=== PATIENT | male | born 1940 | race Caucasian/White ===

== ENCOUNTER 2018-05-03 11:47 | Day surgery (SDC) | payer OTHER ==
[~2018-05-03 11:47] MED LIST: TORADOL10 MG PO; WELCHOL625 MG PO; ZOFRAN4 MG PO
[2018-05-03] MEDS ORDERED: POTASSIUM CHLO10 ME4 PO (12:09)
[2018-05-03] MEDS ORDERED: HYDROCHLOROTHIA25 MG PO (12:09)
[2018-05-03] MEDS ORDERED: LISINOPRIL10 MG PO (12:10)
[2018-05-03] MEDS ORDERED: LIPITOR20 MG PO (12:11)
[2018-05-03] MEDS ORDERED: FINASTERIDE5 MG PO (12:11)
[2018-05-03] MEDS ORDERED: ASPIRIN81 M2 PO (12:12)
[2018-05-03] MEDS ORDERED: CENTRUM SILVER1 EAC1 PO (12:12)
[2018-05-03 12:39] LABS: HEMATOCRIT 46.7 % (38.0-50.0); HEMOGLOBIN 16.1 G/DL (12.5-16.6); MCH 31.9 PG (29.0-34.0); MCHC 34.5 G/DL (30.0-36.0); MCV 92.5 FL (86-99); PLATELET COUNT 208 K/uL (156-360); RBC DIS.WIDTH-CV 12.7 % (11.8-14.6); RBC DIS.WIDTH-SD 43.3 % (39-53); RED BLOOD COUNT 5.05 M/uL (4.00-5.50); WHITE BLOOD COUNT 7.7 K/uL (4.1-10.2)
[2018-05-03 13:19] LABS: CHLORIDE 103 MEQ/L (99-109); CREATININE 0.6 MG/DL (0.6-1.3); GFR ESTIMATE (CALCULATED) > 59 mL/min/ (58.99-99999); GLUCOSE 93 mg/dL (70-99); POTASSIUM 5.1 MEQ/L (3.7-5.4); SODIUM 138 MEQ/L (136-147); UREA NITROGEN (BUN) 22 mg/dL (9-23)
== END 2018-05-03 17:45 | disposition home or self-care (01) ==
LOC: CATH 11:47
PROVIDERS: Internal Medicine Cardiovascular Disease
DX: I25.10 Atherosclerotic heart disease of native coronary artery without angina pectoris (principal); I44.7 Left bundle-branch block, unspecified; I42.0 Dilated cardiomyopathy; E78.5 Hyperlipidemia, unspecified; Z79.82 Long term (current) use of aspirin
CPT/HCPCS: 80048; 85027; C1760; C1769; C1887; C1894; J1644; J2250; J3010